=== PATIENT | female | born 1960 | race Caucasian/White ===

== ENCOUNTER 2018-10-12 16:04 | Emergency (ER) | payer MEDICAID, SELFPAY ==
[2018-10-12 16:13] VITALS: BP 131/72; PULSE 74; RESP 18; TEMP 37.1; O2SAT 98
--- NOTE | 2018-10-12 16:22 | ED.GENADUL_ITS ---
Discharge Plan Disposition Patient Disposition: HOME Condition: Stable Discharge Details Chief Complaint: Urinary Clinical Impression: UTI (urinary tract infection) Primary Care Provider: Amaya,Local ED Provider: Tania Vasquez Home Meds and New Rx's Prescriptions: New cephalexin [Keflex] 500 mg capsule 500 mg PO BID 7 Days Qty: 14 RF: 0 Discharge Instructions Instructions: Urinary Tract Infection in Women (ED) Additional Instructions: Alternate Tylenol and Motrin as needed and directed for pain. Take the antibiotics until finished. You will receive a call from the emergency department if your urine culture notes bacteria that is resistant to Keflex. Return to any emergency department if you develop any worsening or new concerning symptoms. Discharge Data Discharge Physician: Tania Vasquez Medical Decision Making 58-year-old female who presents the ED with complaint of urinary frequency, urgency, hematuria and lower abdominal pain starting today. Recent treatment with Macrobid for UTI which she finished 2 days ago. Vitals within normal limits. She appears nontoxic. Minimal suprapubic tenderness. No CVA tenderness. Urinalysis notes greater than 50 WBCs and moderate leukocyte esterase. Will treat with Keflex. Patient expressed concern about antibiotic resistance. She is traveling to [facility] today. She was notified that she will be called with cultures if it notes that bacteria is resistant to Keflex. She is instructed to return to the emergency department if she has any worsening or concerning symptoms of fever, pain or any other concerns. HPI General Mode of arrival: ambulatory . Date/Time Provider Initiated Documentation: 10/12/18 16:22 . Limitations to Documentation: no limitations . Information obtained by: patient . HPI Narrative: Patient is a 58-year-old female presents with urinary frequency, urgency, hematuria and lower abdominal pain that started today. Patient was treated with Macrobid recently for urinary tract infection which she finished 2 days ago. She states her symptoms had almost completely resolved after 1 day of antibiotics. She denies fever, nausea, vomiting, back pain. Related Data Home Medications Medication Instructions Recorded Confirmed cephalexin [Keflex] 500 mg PO BID 7 Days #14 cap 10/12/18 Previous Rx's Medication Instructions Recorded cephalexin [Keflex] 500 mg PO BID 7 Days #14 cap 10/12/18 Allergies Allergy/AdvReac Type Severity Reaction Status Date / Time No Known Allergies Allergy Unverified 10/12/18 16:20 General Stated Complaint: Urinary ADIN: 3 Review of Systems Review of Systems All systems reviewed & are unremarkable except as noted in HPI and below Constitutional Reports as per HPI, Denies chills and Denies fever(s) Eyes Denies blurry vision ENT Denies dizziness, Denies sore throat and Denies throat swelling Cardiovascular Denies chest pain and Denies dyspnea Respiratory Denies cough and Denies dyspnea Gastrointestinal Denies abdominal pain, Denies diarrhea and Denies vomiting Genitourinary Denies hematuria and Denies dysuria Musculoskeletal Denies back pain and Denies numbness Integumentary/Breasts Denies lesions and Denies rash Neurologic Denies dizziness, Denies focal weakness and Denies numbness Allergic/Immunologic Denies throat swelling FOR[facility] Medical History Fatoumata's disease (Acute) Surgical History No significant past surgical history (Acute) Social History Smoking/Tobacco Use Status: Never Alcohol Intake: never Substance use type: does not use Exam Const General: cooperative, healthy appearing and no acute distress HENMT Head: normal to inspection Face and sinus: normal facial exam Eyes General: appearance normal, both eyes and all related structures Pupils: PERRL EOM: EOM intact bilaterally Neck Neck: normal visual inspection and No submandibular swelling Lymphatic: no lymphadenopathy noted Chest Chest: normal inspection of the chest and no tenderness Resp Effort & Inspection: normal respiratory effort and able to speak in complete sentences Auscultation: clear to auscultation bilaterally Cardio Rate: regular rate Rhythm: regular rhythm GI Inspection: normal to inspection Palpation: soft, not firm, not rigid and tender suprapubicly Auscultation: normal bowel sounds Back/Spine/Pelvis Back: no CVA tenderness Skin General skin exam: no rashes or lesions noted Neuro General: alert, awake and oriented x3 Cognition: normal cognition Speech: speech normal Motor: muscle tone normal throughout Sensory Exam: no sensory deficits noted Extrem General: normal to inspection, full ROM, normal capillary refill, no calf tenderness bilaterally and no edema Psych Appearance: grossly normal Mental Status: mental status grossly normal Speech and Movement: speech and movement normal Affect: normal affect Course Vital Signs Temperature 98.8 F 07/19/19 16:13 Pulse 74 10/12/18 16:13 Respiratory Rate 18 10/12/18 16:13 Blood Pressure 131/72 10/12/18 16:13 Pulse Oximetry 98 10/12/18 16:13 Temperature 98.8 F 10/12/18 16:13 Temperature Source Temporal Artery Scan 10/12/18 16:13 Pulse 74 10/12/18 16:13 Respiratory Rate 18 10/12/18 16:13 Respiratory Effort Non-Labored 10/12/18 16:20 Blood Pressure 131/72 10/12/18 16:13 Pulse Oximetry 98 10/12/18 16:13 Pain Level 4 10/12/18 16:20
[2018-10-12 16:23] LABS: Bilirubin Negative (Negative); Blood Large (Negative); Clarity Cloudy (Clear); Glucose Negative (Negative); Ketones Negative (Negative); Leukocyte Esterase Moderate (Negative); Nitrite Negative (Negative); Urobilinogen 0.2 EU/dL (Up TO 0.2)
[2018-10-12 16:39] LABS: Bacteria Rare HPF (Negative); C & S Indicated? Yes; Casts Negative LPF (Negative); Crystals Negative HPF (Negative); Epithelial Cells Rare HPF (Negative); Mucus Negative (Negative); Other Cells Few Transitional (Negative); RBC 0-2 (0-2); WBC >50 HPF (0-5)
[2018-10-12] MEDS: Cephalexin 500 MG CAP PO (17:30)
== END 2018-10-12 17:31 | disposition home or self-care (01) ==
PROVIDERS: Emergency Provider Physician Assistant; PCP Naturopath
DX: N39.0 Urinary tract infection, site not specified (principal)
CPT/HCPCS: 99283; 81003; 81015; 87086